=== PATIENT | male | born 1935 | race Caucasian/White ===

== ENCOUNTER → 2017-11-22 | Outpatient (CLI) | payer OTHER | LOC: BHFA 13:30 | PROVIDERS: ATTEND Internal Medicine Cardiovascular Disease | DX: I25.10 Atherosclerotic heart disease of native coronary artery without angina pectoris (principal) | CPT/HCPCS: 78452; 93017; A9500; J2785 ==

== ENCOUNTER 2018-10-02 10:16 | Emergency (ER) | payer OTHER ==
[2018-10-02] MEDS ORDERED: OSELTAMIVIR PHOSPHATE 75 MG CAP PO ONE (11:03)
[2018-10-02] MEDS ORDERED: NS 500 ML IV ONE (11:03)
[2018-10-02] MEDS ORDERED: CARBAMIDE PEROXIDE 15 ML OTIC.BTL LEFTEAR ONE (11:04)
[2018-10-02 12:51] VITALS: BP 134/59
--- NOTE | 2018-10-02 12:55 | EDPHY ---
H & P Time Seen by Provider: 10/02/18 10:29 HPI/ROS: Since yesterday this patient complains of cough, fevers myalgias and fatigue. He reports that the symptoms started somewhat abruptly around 4:00 p.m. The day prior to arrival with a dry hacking cough followed by the other symptoms listed above. He reports associated nasal congestion that is mild. He also complains of vertiginous symptoms that are mild to moderate and diminished hearing left ear. He thinks he may have wax buildup in the left ear and reports mild discomfort in left ear in addition. He is accompanied by his daughter who brought him in by private you have vehicle for evaluation of his cough and fever. He took Tylenol 650 mg approximately an hour prior to arrival today. ROS: Constitutional: Fatigue and myalgias HEENT: He denies sinus pain. No sore throat. No drainage from the ear Musculoskeletal: No neck stiffness. He did report hearing a crack sound in his neck when he turns his head last night but denies any neck pain at this time. Pulmonary: Dry cough-nonproductive, no hemoptysis. No pleuritic pain. Denies any significant dyspnea. Cardiovascular: He reports his dizziness feels more vertiginous than lightheadedness to him. No chest pain. No heart palpitations. GI: No abdominal pain, vomiting or diarrhea. 10 point review of symptoms is performed and otherwise negative with exception of pertinent positives and negatives listed in HPI and ROS Smoking Status: Former smoker Physical Exam: General Appearance: Alert, no distress. Eyes: Pupils equal and round no pallor or injection. ENT, Mouth: Mucous membranes moist. Oropharynx is clear with no erythema ears : Right external canal with mild cerumen but otherwise clear and TM are clear left external canal is obstructed by cerumen impaction Respiratory: Patient has rales at the bases right more than left that diminished with deep breaths but do not entirely clear. Cardiovascular: Regular rate and rhythm. No murmur gallop rub. No peripheral edema or calf tenderness. Gastrointestinal: Abdomen is soft and nontender, no masses, bowel sounds normal. Neurological: GCS 15. Rapid hand movements are symmetric and intact bilaterally. No focal deficits are appreciated Skin: Warm and dry, no rashes. Musculoskeletal: Neck is supple nontender. Extremities are symmetrical, full range of motion. Psychiatric: Mood and affect normal DIFFERENTIAL DIAGNOSIS: After history and physical exam differential diagnosis was considered for influenza, pneumonia, viral URI with cough, cerumen impaction , vertigo, benign positional vertigo, peripheral vertigo Constitutional: Initial Vital Signs Temperature (C) 37.8 C 10/02/18 10:26 Heart Rate 87 10/02/18 10:26 Respiratory Rate 18 10/02/18 10:26 Blood Pressure 133/73 H 10/02/18 10:26 O2 Sat (%) 92 10/02/18 10:26 O2 Delivery Mode Room Air O2 (L/minute) 2 Allergies/Adverse Reactions: No Known Allergies Allergy (Unverified 10/02/18 10:26) Home Medications: Medication Instructions Recorded Benzonatate [Tessalon Pearles (RX)] 100 mg PO PRN PRN 10/02/18 Herbals/Supplements -Info Only 1 ea PO DAILY 10/02/18 Hydrocodone/APAP 5/325 [[place] 1 - 2 each PO Q6 PRN #20 tab 10/02/18 5/325] Iron,Carbonyl [Iron Chews] 1 tab PO DAILY 10/02/18 Losartan Potassium [Cozaar 50 mg 50 mg PO BID 10/02/18 (*)] Metoprolol Succinate Xr [Toprol Xl 25 mg PO DAILY 10/02/18 25 mg (*)] Oseltamivir Phosphate [Tamiflu 75 75 mg PO BID 10/02/18 mg (*)] Sertraline HCl [Zoloft 100mg (*)] 100 mg PO DAILY 10/02/18 Warfarin Sodium [Coumadin 5MG (*)] 2.5 mg PO SUTUTHSA@16 10/02/18 Warfarin Sodium [Coumadin 5MG (*)] 5 mg PO MOWEFR@16 10/02/18 amLODIPine BESYLATE [Norvasc 5 mg 5 mg PO DAILY 10/02/18 (*)] MDM/Departure - MDM Diagnostics: POC influenza: Positive for influenza A CBC is normal, venous lactate is normal, basic metabolic panel is normal Imaging Results: Two view chest x-ray: Findings consistent with bronchitis without focal infiltrate by my interpretation Imaging: I viewed and interpreted images myself Medications Given: Discontinued Medications Acetaminophen (Tylenol) 1,000 mg PO EDNOW ONE Stop: 10/02/18 13:10 Last Admin: 10/02/18 13:10 Dose: 1,000 mg Carbamide Peroxide (Debrox) 5 drop LEFTEAR EDNOW ONE Stop: 10/02/18 11:05 Last Admin: 10/02/18 11:24 Dose: 5 drops Sodium Chloride (Ns) 500 mls @ 1,000 mls/hr IV EDNOW ONE PRN Reason: Protocol Stop: 10/02/18 11:32 Last Admin: 10/02/18 11:22 Dose: 500 mls Oseltamivir Phosphate (Tamiflu) 75 mg PO EDNOW ONE Stop: 10/02/18 11:04 Last Admin: 10/02/18 11:22 Dose: 75 mg ED Course/Re-evaluation: IV 500 cc normal saline bolus Debrox to ears followed by irrigation by our tech Sacha with removal of cerumen. On repeat ear examination at 1:15 p.m. After you're irrigation-cerumen is removed and his left TM is clear. He reports improved hearing since the irrigation. After cerumen removal and saline bolus patient reports resolution of his vertigo. Tamiflu p.o.. I counseled the patient regarding influenza. Discussion: 83-year-old gentleman with influenza a in this room impaction. I think that his vertigo was a peripheral vertigo attributable to the cerumen impaction improved after cerumen removal. We ruled out pneumonia and sepsis with workup today. I think that he is safe for discharge home and counseled him in detail regarding influenza in the need to return emergency department should she develop any significant worsening despite the treatment plan of Tamiflu, Tessalon Perles, Tylenol for fevers. - Depart Disposition: Home, Routine, Self-Care Clinical Impression: Influenza A, Impacted cerumen of left ear Condition: Good Instructions: Influenza (ED) Additional Instructions: Diagnosis: Influenza A 2. Cerumen impaction Plan: Humidifier Continue Tylenol Flonase steroid nasal spray for nasal congestion. Add Tamiflu as prescribed Drink plenty fluids Use your small finger to clean out your ear, but do not put anything else in the ears as a Q tip tends to pack wax deeper into the ear canal. Return for any significant worsening of your symptoms despite the treatment plan. Referrals: Melanie Anguiano MD [Primary Care Provider] - As per Instructions
[2018-10-02] MEDS ORDERED: ACETAMINOPHEN 500 MG TAB ONE (13:08)
[2018-10-02] MEDS ORDERED: ACETAMINOPHEN 500 MG TAB PO ONE (13:09)
== END 2018-10-02 13:30 | disposition home or self-care (01) ==
LOC: CED 10:16
PROC: 3E1B78Z Irrigation of Ear using Irrigating Substance, Via Natural or Artificial Opening (ICD-10-PCS; principal; 2018-10-02)
DX: J10.1 Influenza due to other identified influenza virus with other respiratory manifestations (principal); E86.9 Volume depletion, unspecified; H61.22 Impacted cerumen, left ear
CPT/HCPCS: 71046-PO; 80048-ER; 83605-ER; 96360-ER; 99284-ER

== ENCOUNTER 2018-10-02 20:31 | Emergency (ER) | payer OTHER ==
[2018-10-02] MEDS ORDERED: NS 1,000 ML IV ONE (20:56)
--- NOTE | 2018-10-02 20:56 | EDPHY ---
H & P Stated Complaint: dx flu today, sinus pressure, fever/chills Time Seen by Provider: 10/02/18 20:56 HPI/ROS: CHIEF COMPLAINT: Influenza, worsening symptoms HISTORY OF PRESENT ILLNESS: The patient was diagnosed with influenza today at the freestanding emergency department. He was started on Tamiflu and discharged home. The patient comes back to the emergency department tonight complaining of worsening fatigue, chills, headache and uncontrolled fever. The patient lives alone is concerned about his level of discomfort. The patient denies any rash, vomiting or diarrhea. The patient denies any acute numbness or weakness. REVIEW OF SYSTEMS: A comprehensive 10 point review of systems is otherwise negative aside from elements mentioned in the history of present illness. Source: Patient - Personal History Current Tetanus/Diphtheria Vaccine: Unsure - Medical/Surgical History Hx Asthma: No Hx Chronic Respiratory Disease: No Hx Diabetes: No Hx Cardiac Disease: Yes Hx Renal Disease: No Hx Cirrhosis: No Hx Alcoholism: No Hx HIV/AIDS: No Hx Splenectomy or Spleen Trauma: No Other PMH: cardiac pacemaker, afib, htn, cardiac stent - Social History Smoking Status: Former smoker - Physical Exam Exam: General Appearance: Alert, no distress Eyes: Pupils equal and round no pallor or injection ENT, Mouth: Mucous membranes moist Respiratory: Coarse breath sounds bilaterally Cardiovascular: Regular rate and rhythm Gastrointestinal: Abdomen is soft and nontender, no masses, bowel sounds normal Neurological: A&O, normal motor function, normal sensory exam, normal cranial nerves Skin: Warm and dry, no rashes Musculoskeletal: Neck is supple nontender Extremities: symmetrical, full range of motion Psychiatric: Patient is oriented X 3, there is no agitation Constitutional: Initial Vital Signs Temperature (C) 39.4 C H 10/02/18 20:45 Heart Rate 78 10/02/18 20:45 Respiratory Rate 20 10/02/18 20:45 Blood Pressure 141/73 H 10/02/18 20:45 O2 Sat (%) 92 10/02/18 20:45 O2 Delivery Mode Room Air Allergies/Adverse Reactions: No Known Allergies Allergy (Unverified 10/02/18 10:26) Home Medications: Medication Instructions Recorded Benzonatate [Tessalon Pearles (RX)] 100 mg PO PRN PRN 10/02/18 Herbals/Supplements -Info Only 1 ea PO DAILY 10/02/18 Hydrocodone/APAP 5/325 [[place] 1 - 2 each PO Q6 PRN #20 tab 10/02/18 5/325] Iron,Carbonyl [Iron Chews] 1 tab PO DAILY 10/02/18 Losartan Potassium [Cozaar 50 mg 50 mg PO BID 10/02/18 (*)] Metoprolol Succinate Xr [Toprol Xl 25 mg PO DAILY 10/02/18 25 mg (*)] Oseltamivir Phosphate [Tamiflu 75 75 mg PO BID 10/02/18 mg (*)] Sertraline HCl [Zoloft 100mg (*)] 100 mg PO DAILY 10/02/18 Warfarin Sodium [Coumadin 5MG (*)] 2.5 mg PO SUTUTHSA@16 10/02/18 Warfarin Sodium [Coumadin 5MG (*)] 5 mg PO MOWEFR@16 10/02/18 amLODIPine BESYLATE [Norvasc 5 mg 5 mg PO DAILY 10/02/18 (*)] Medical Decision Making ED Course/Re-evaluation: The patient had an IV established. He received a L of normal saline. I reviewed the results of his chest x-ray from earlier today. The patient received 30 mg of IV Toradol. I reviewed the patient's lab testing from earlier today. His laboratory studies continued to be normal. I re-evaluated the patient at 10:30 p.m.. He is feeling much better after IV fluid rehydration and Toradol. The patient would like to be discharged home. He was offered admission to the hospital however he is comfortable going home and returning to the ED should he develop any acute worsening symptoms, vomiting, difficulty breathing or other concerns. Differential Diagnosis: Differential diagnosis considered includes dehydration, renal failure, sepsis, pneumonia, metabolic derangement, influenza - Data Points Laboratory Results: Laboratory Results 10/02/18 21:15 10/02/18 21:15 10/02/18 10/02/18 21:15 21:15 WBC 6.48 10^3/uL 10^3/uL (3.80-9.50) RBC 4.34 10^6/uL L 10^6/uL (4.40-6.38) Hgb 13.7 g/dL g/dL (13.7-17.5) Hct 39.9 % L % (40.0-51.0) MCV 91.9 fL fL (81.5-99.8) MCH 31.6 pg pg (27.9-34.1) MCHC 34.3 g/dL g/dL (32.4-36.7) RDW 14.8 % % (11.5-15.2) Plt Count 156 10^3/uL 10^3/uL (150-400) MPV 10.3 fL fL (8.7-11.7) Neut % (Auto) 74.2 % % (39.3-74.2) Lymph % (Auto) 7.7 % L % (15.0-45.0) Gem % (Auto) 17.3 % H % (4.5-13.0) Eos % (Auto) 0.2 % L % (0.6-7.6) Baso % (Auto) 0.3 % % (0.3-1.7) Nucleat RBC Rel Count 0.0 % % (0.0-0.2) Absolute Neuts (auto) 4.81 10^3/uL 10^3/uL (1.70-6.50) Absolute Lymphs (auto) 0.50 10^3/uL L 10^3/uL (1.00-3.00) Absolute Monos (auto) 1.12 10^3/uL H 10^3/uL (0.30-0.80) Absolute Eos (auto) 0.01 10^3/uL L 10^3/uL (0.03-0.40) Absolute Basos (auto) 0.02 10^3/uL 10^3/uL (0.02-0.10) Absolute Nucleated RBC 0.00 10^3/uL 10^3/uL (0-0.01) Immature Gran % 0.3 % % (0.0-1.1) Immature Gran # 0.02 10^3/uL 10^3/uL (0.00-0.10) RBC/WBC/PLT Morphology TNP Platelet Estimate TNP Sodium 139 mEq/L mEq/L (135-145) Potassium 4.3 mEq/L mEq/L (3.5-5.2) Chloride 108 mEq/L mEq/L (97-110) Carbon Dioxide 22 mEq/l mEq/l (22-31) Anion Gap 9 mEq/L mEq/L (6-14) BUN 23 mg/dL mg/dL (7-23) Creatinine 1.1 mg/dL mg/dL (0.7-1.3) Estimated GFR > 60 Glucose 113 mg/dL H mg/dL (70-100) Calcium 8.7 mg/dL mg/dL (8.5-10.4) Medications Given: Discontinued Medications Sodium Chloride (Ns) 1,000 mls @ 0 mls/hr IV ONCE ONE; Wide Open PRN Reason: Protocol Stop: 10/02/18 20:57 Last Admin: 10/02/18 21:23 Dose: 1,000 mls Ketorolac Tromethamine (Toradol) 30 mg IVP EDNOW ONE Stop: 10/02/18 21:07 Last Admin: 10/02/18 21:23 Dose: 30 mg Departure - Departure Disposition: Home, Routine, Self-Care Clinical Impression: Influenza A Condition: Good Instructions: Influenza (ED) Additional Instructions: 1. Take Ibuprofen or Motrin 600 mg by mouth three times a day. 2. [place] as needed for severe pain 3. Do not take more than 4 g of Tylenol in a 24 hr period. [place] does contain Tylenol. 4. Return to the ED for markedly worsening respiratory symptoms, vomiting, difficulty breathing or other concerns. Referrals: Melanie Anguiano MD [Primary Care Provider] - As per Instructions
[2018-10-02] MEDS ORDERED: KETOROLAC 30 MG/1 ML SDV IVP ONE (21:06)
[2018-10-02 21:31] LABS: PLATELET COUNT 156 10^3/uL (150-400)
[2018-10-02 22:44] VITALS: BP 137/63
== END 2018-10-02 22:44 | disposition home or self-care (01) ==
DX: J10.1 Influenza due to other identified influenza virus with other respiratory manifestations (principal); E86.9 Volume depletion, unspecified; I10 Essential (primary) hypertension; Z95.0 Presence of cardiac pacemaker; Z95.9 Presence of cardiac and vascular implant and graft, unspecified
CPT/HCPCS: 96361; 96374; 99284; J1885